=== PATIENT | female | born 1965 | race Caucasian/White ===

== ENCOUNTER 2020-04-14 09:53 | Inpatient (IN) | payer OTHER ==
[~2020-04-14] VITALS: Ht 177.8 cm; Wt 124.8 kg
[~2020-04-14 09:53] MED LIST: AMBIEN 5 MG TABL5 M1 PO; APAP500 PO; FLEXERIL PO; HYDROCODON-ACE1 EAC7 PO; IBUPROFEN 200200 M1 PO; LEVAQUIN 750 M750 MG PO; LIPITOR 20 MG T20 M1 PO; LISINOPRIL10 MG PO; LOPRESSOR100 M1 PO; METFORMIN HCL500 MG PO; OMEPRAZOLE20 M2 PO; TESSALON PERLE100 MG PO; VENTOLIN HFA 1818 GM INH; ZOFRAN4 MG PO; ZOLOFT100 MG PO
[2020-04-14 10:05] VITALS: BP 150/79
[2020-04-14] MEDS ORDERED: FLEXERIL PO (10:09)
[2020-04-14] MEDS ORDERED: AMBIEN 5 MG TABL5 MG PO (10:09)
[2020-04-14 10:31] LABS: ABSOLUTE BASOPHILS 0.1 thou/uL (0.0-0.2); ABSOLUTE EOSINOPHILS 0.1 thou/uL (0.0-0.7); ABSOLUTE LYMPHOCYTES 1.8 thou/uL (0.8-5.3); ABSOLUTE MONOCYTES 0.3 thou/uL (0.0-1.2); ABSOLUTE NEUTROPHILS 2.5 thou/uL (1.6-8.1); BASOPHILS 2.1 %; EOSINOPHILS 1.6 %; HEMATOCRIT 31.6 % (37.0-47.0); HEMOGLOBIN 10.1 gm/dL (12.0-15.0); LYMPHOCYTES 37.2 %; MCH 25.3 pg (26.0-34.0); MCHC 32.1 g/dL (28.0-37.0); MCV 78.8 fL (80.0-100.0); MONOCYTES 7.2 %; MPV 8.6 fl. (7.2-11.1); NUCLEATED RBCS 0 /100WBC; PLATELET COUNT* 124 thou/uL (150-400); POLYS 51.9 %; RBC 4.01 mil/uL (4.20-5.00); RDW-CV 19.1 % (10.5-14.5); WBC 4.8 thou/uL (4.0-11.0)
[2020-04-14 10:39] LABS: CALCIUM 8.4 mg/dL (8.5-10.1); CREATININE 0.7 mg/dL (0.6-1.3); POTASSIUM 3.9 mmol/L (3.5-5.1)
[2020-04-14 10:43] LABS: ALBUMIN 2.6 g/dL (3.4-5.0); TOTAL PROTEIN 6.6 g/dL (6.4-8.2)
[2020-04-14 12:14] LABS: APTT 27.3 Seconds (25.0-31.3); INR 1.2; PROTIME 12.6 Seconds (9.20-11.50)
[2020-04-14 12:47] LABS: CHOLESTEROL 125 mg/dL (<200); HDL CHOLESTEROL 42 mg/dL (>40); LDL CHOLESTEROL 66 mg/dL (<100); SERUM ASSESSMENT Clear; TRIGLYCERIDE 85 mg/dL (<150); VLDL 17 mg/dL (<40)
--- NOTE | 2020-04-14 14:47 | EKG ---
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 : 1965 Requested By: Danya Marcus Order Number: [id number] MD: Dejuan Strauss Measurements Intervals [place] Rate: 75 P: 3 DC: 146 QRS: 4 QRSD: 92 T: 40 QT: 404 QTc: 452 Interpretive Statements Sinus rhythm Low voltage, precordial leads LVH by voltage Borderline T abnormalities, anterior leads Compared to ECG 08/08/2016 15:22:00 Low QRS voltage now present Left ventricular hypertrophy now present T-wave abnormality now present Electronically Signed On 04-14-2020 14:46:50 CONSERVATION SCIENCE TEACHER by Dejuan Strauss [email or web address] <ELECTRONICALLY SIGNED> By: Dejuan Strauss MD, [facility] 04/14/20 1446 1045 1045 Dejuan Strauss MD, [facility] /EPI
[2020-04-14 14:51] LABS: URINE BILIRUBIN NEGATIVE (Negative); URINE BLOOD TRACE (Negative); URINE CLARITY CLEAR; URINE COLOR YELLOW; URINE GLUCOSE-RANDOM NEGATIVE (Negative); URINE KETONES NEGATIVE (Negative); URINE LEUKOCYTES-REFLEX NEGATIVE (Negative); URINE NITRITE-REFLEX NEGATIVE (Negative); URINE PROTEIN NEGATIVE (Negative); URINE UROBILINOGEN 0.2 E.U./dl (0.2-1.0)
[2020-04-14 15:02] LABS: AMP/METHAMP Negative (Negative); BARBITURATES Negative (Negative); BENZODIAZEPINES Negative (Negative); COCAINE Negative (Negative); METHADONE Negative (Negative); OPIATES Negative (Negative); PCP Negative (Negative); THC Negative (Negative)
[2020-04-14 17:00] VITALS: BP 146/77
[2020-04-14 20:40] VITALS: BP 139/77
[2020-04-14 20:45] VITALS: BP 143/58
[2020-04-15] VITALS (7 sets, daily range): BP systolic 118–167; BP diastolic 54–81
[2020-04-15 15:07] LABS: ANA INTERPRETATION Negative (Negative)
[2020-04-15 22:07] LABS: HEPATITIS B SURFACE AG Negative (Negative)
[2020-04-16 04:14] LABS: CALCIUM 8.2 mg/dL (8.5-10.1); CREATININE 0.7 mg/dL (0.6-1.3); HEMATOCRIT 28.7 % (37.0-47.0); HEMOGLOBIN 9.1 gm/dL (12.0-15.0); MCH 25.2 pg (26.0-34.0); MCHC 31.9 g/dL (28.0-37.0); MPV 9.1 fl. (7.2-11.1); RBC 3.63 mil/uL (4.20-5.00); RDW-CV 18.8 % (10.5-14.5); WBC 3.7 thou/uL (4.0-11.0)
[2020-04-16 04:29] VITALS: BP 105/69
[2020-04-16 08:00] VITALS: BP 112/64
[2020-04-16 14:01] VITALS: BP 112/64
[2020-04-16] MEDS ORDERED: PROTONIX40 M2 PO ×2 (14:11→14:24)
--- NOTE | 2020-04-17 09:08 | PATH ---
[address] [address] PATHOLOGY RPT PROCEDURE Name: DEDE SANTANA Room: [address] IN [facility]#: [id number] Admission: 04/14/20 Date of : 69 Discharge: 04/16/20 Report #: [id number] Path Case #: [id number] Note [facility] Accession Number: [id number] TESTS RESULT FLAG UNITS REF RANGE LAB Clinician Provided Cytology Information No. of containers..01 Other (Miscellaneous) Source: ASCITES DIAGNOSIS: 02 ASCITES NEGATIVE FOR MALIGNANT CELLS. REACTIVE MESOTHELIAL CELLS AND FEW, PREDOMINANTLY CHRONIC INFLAMMATORY CELLS. THIS INTERPRETATION INCLUDES EVALUATION OF A CELL BLOCK. Signed out by: 02 Cheikh Das MD, Pathologist NPI- [id number] Performed by: 01 Alicia Sotomayor, Gold Leaf Layer ([facility]) Gross description: 01 60ML, YELLOW, 1TP 1CB /LCS 04/15/2020 0630 Local FLAG LEGEND: L-Low Normal,H-High Normal,LL-Alert Low,HH-Alert High <-Panic Low,>-Panic High,A-Abnormal,AA-Critical Abnormal Performed at: [address] [place] [address] Jose Zarco MD, [address] [address] Cehikh Das MD, Specimen Comment: Report sent to DR PEREZ / DR BELTRE Performed at: [address], [place], [place] [id number] MD Jose Zarco MD Phone: [phone]
== END 2020-04-16 14:40 | disposition home or self-care (01) | DRG 442 ==
LOC: M.ERS 09:53 → M.TBA-ER 12:15 → M.2W 12:15
PROVIDERS: Family Medicine; Nurse Practitioner Family; ADMIT Internal Medicine; ATTEND Internal Medicine
PROC: 0W9G3ZZ Drainage of Peritoneal Cavity, Percutaneous Approach (ICD-10-PCS; principal; 2020-04-14)
PROC: 5A09357 Assistance with Respiratory Ventilation, Less than 24 Consecutive Hours, Continuous Positive Airway Pressure (ICD-10-PCS; 2020-04-15)
PROC: 0DB68ZX Excision of Stomach, Via Natural or Artificial Opening Endoscopic, Diagnostic (ICD-10-PCS; 2020-04-16)
DX: K75.81 Nonalcoholic steatohepatitis (NASH) (principal); R18.8 Other ascites; I85.10 Secondary esophageal varices without bleeding; K76.6 Portal hypertension; K74.69 Other cirrhosis of liver; K21.9 Gastro-esophageal reflux disease without esophagitis; E66.9 Obesity, unspecified; E78.5 Hyperlipidemia, unspecified; F17.210 Nicotine dependence, cigarettes, uncomplicated; G47.00 Insomnia, unspecified; F32.9 Major depressive disorder, single episode, unspecified; E88.09 Other disorders of plasma-protein metabolism, not elsewhere classified; E11.9 Type 2 diabetes mellitus without complications; E88.81 Metabolic syndrome and other insulin resistance; Z20.822 Contact with and (suspected) exposure to COVID-19; K44.9 Diaphragmatic hernia without obstruction or gangrene; K31.89 Other diseases of stomach and duodenum; Z90.49 Acquired absence of other specified parts of digestive tract; Z90.711 Acquired absence of uterus with remaining cervical stump; Z90.722 Acquired absence of ovaries, bilateral; Z68.39 Body mass index [BMI] 39.0-39.9, adult; Z83.6 Family history of other diseases of the respiratory system; Z80.9 Family history of malignant neoplasm, unspecified

== ENCOUNTER 2020-05-19 10:13 | Observation (INO) | payer OTHER ==
[~2020-05-19] VITALS: Ht 177.8 cm; Wt 123.4 kg
[~2020-05-19 10:13] MED LIST changes: +AMBIEN 5 MG TABL5 MG PO; +PROTONIX40 M2 PO
[2020-05-19 10:27] VITALS: BP 113/70
[2020-05-19 11:02] LABS: ABSOLUTE BASOPHILS 0.1 thou/uL (0.0-0.2); ABSOLUTE EOSINOPHILS 0.1 thou/uL (0.0-0.7); ABSOLUTE LYMPHOCYTES 1.9 thou/uL (0.8-5.3); ABSOLUTE MONOCYTES 0.4 thou/uL (0.0-1.2); ABSOLUTE NEUTROPHILS 3.3 thou/uL (1.6-8.1); BASOPHILS 2.4 %; HEMATOCRIT 32.1 % (37.0-47.0); HEMOGLOBIN 10.3 gm/dL (12.0-15.0); LYMPHOCYTES 32.6 %; MCH 25.4 pg (26.0-34.0); MCHC 32.1 g/dL (28.0-37.0); MCV 79.1 fL (80.0-100.0); MONOCYTES 6.7 %; MPV 9.8 fl. (7.2-11.1); NUCLEATED RBCS 0 /100WBC; PLATELET COUNT* 137 thou/uL (150-400); POLYS 57.3 %; RBC 4.06 mil/uL (4.20-5.00); RDW-CV 19.1 % (10.5-14.5); WBC 5.8 thou/uL (4.0-11.0)
[2020-05-19 11:12] LABS: CREATININE 0.8 mg/dL (0.6-1.3); POTASSIUM 4.2 mmol/L (3.5-5.1)
[2020-05-19 11:16] LABS: ALBUMIN 2.4 g/dL (3.4-5.0); TOTAL BILIRUBIN 1.1 mg/dL (<0.1-1.0)
[2020-05-19 12:34] LABS: APTT 27.3 Seconds (25.0-31.3); INR 1.2; PROTIME 12.4 Seconds (9.20-11.50)
[2020-05-19 13:46] LABS: URINE BILIRUBIN NEGATIVE (Negative); URINE BLOOD NEGATIVE (Negative); URINE CLARITY CLEAR; URINE COLOR YELLOW; URINE GLUCOSE-RANDOM NEGATIVE (Negative); URINE KETONES NEGATIVE (Negative); URINE LEUKOCYTES-REFLEX NEGATIVE (Negative); URINE NITRITE-REFLEX NEGATIVE (Negative); URINE PROTEIN NEGATIVE (Negative); URINE SPECIFIC GRAVITY <= 1.005 (1.005-1.030); URINE UROBILINOGEN 0.2 E.U./dl (0.2-1.0)
--- NOTE | 2020-05-19 14:28 | EKG ---
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 : 1965 Requested By: Max Ott Order Number: [id number] MD: Suleman White Measurements Intervals [place] Rate: 72 P: 0 LA: 148 QRS: 5 QRSD: 92 T: 6 QT: 410 QTc: 449 Interpretive Statements Sinus rhythm LVH by voltage Borderline T abnormalities, anterior leads Compared to ECG 04/14/2020 10:45:49 No significant changes Electronically Signed On 05-19-2020 14:27:54 BAG MACHINE SET UP OPERATOR by Suleman White [email or web address] <ELECTRONICALLY SIGNED> By: Suleman White MD, [facility] 05/19/20 1427 1103 1103 Suleman White MD, [facility] /EPI
[2020-05-19 15:59] LABS: BF LYMPHOCYTES 96 %; BF MONOCYTES 3 %; BF POLYS 1 %; BF TISSUE 20 /100 WBC
[2020-05-19 16:00] LABS: BF EOSINOPHILS 0 %; BF RBC 0 /mm3; BODY FLUID BANDS 0 %; CLARITY SLIGHTLY CLOUDY; SOURCE ABDOMINAL; TOTAL VOLUME 5660 ml
[2020-05-19 16:12] VITALS: BP 130/59
[2020-05-19] MEDS ORDERED: LASIX 40 MG TAB40 MG PO (16:35)
[2020-05-19] MEDS ORDERED: ALDACTONE100 MG PO (16:35)
[2020-05-19 18:01] VITALS: BP 130/59
[2020-05-20 14:07] LABS: BODY FLUID CREATININE 0.5 mg/dL (Not Estab.)
--- NOTE | 2020-05-21 14:07 | PATH ---
[address] [address] PATHOLOGY RPT PROCEDURE Name: DEDE SANTANA Room: [address] Monet Canales#: [id number] Admission: 05/19/20 Date of : 69 Discharge: 05/19/20 Report #: [id number] Path Case #: [id number] Note [facility] Accession Number: [id number] TESTS RESULT FLAG UNITS REF RANGE LAB Clinician Provided Cytology Information No. of containers..01 Other (Miscellaneous) Source: PERITONEAL ACITES DIAGNOSIS: 02 PERITONEAL ACITES NEGATIVE FOR MALIGNANT CELLS. MESOTHELIAL CELLS AND FEW, PREDOMINANTLY CHRONIC INFLAMMATORY CELLS. THIS INTERPRETATION INCLUDES EVALUATION OF A CELL BLOCK. Signed out by: 02 Cheikh Das MD, Pathologist NPI- [id number] Performed by: Karishma Palacios, Glove Examiner ([facility]) Gross description: 01 15ML, YELLOW, 1TP 1 CB /LCS 05/20/2020 0726 Local FLAG LEGEND: L-Low Normal,H-High Normal,LL-Alert Low,HH-Alert High <-Panic Low,>-Panic High,A-Abnormal,AA-Critical Abnormal Performed at: [address] [place] [address] Jose Zarco MD, [address] [place] [address] [address] [place] [address] Cheikh Das MD, Specimen Comment: Report sent to Performed at: [address], [place], [place] [id number] MD Jose Zarco MD Phone: [phone]
== END 2020-05-19 17:30 | disposition home or self-care (01) ==
LOC: M.ERS 10:13 → M.TBA-ER 12:39 → M.ORTHSURG 16:26
PROVIDERS: Emergency Medicine Emergency Medical Services; ADMIT Internal Medicine; ATTEND Internal Medicine
DX: R18.8 Other ascites (principal); K74.60 Unspecified cirrhosis of liver; E11.9 Type 2 diabetes mellitus without complications; K21.9 Gastro-esophageal reflux disease without esophagitis; D64.9 Anemia, unspecified; E66.9 Obesity, unspecified; Z68.39 Body mass index [BMI] 39.0-39.9, adult; Z20.822 Contact with and (suspected) exposure to COVID-19

== ENCOUNTER → 2021-02-25 | Outpatient (CLI) | payer OTHER ==
[~2021-02-25] MED LIST changes: +ALDACTONE100 MG PO; +LASIX 40 MG TAB40 MG PO
== END ==
LOC: M.ULTRA 14:34
PROVIDERS: ATTEND Nurse Practitioner Family
DX: E04.1 Nontoxic single thyroid nodule (principal); R59.0 Localized enlarged lymph nodes

== ENCOUNTER → 2021-04-24 | Outpatient (CLI) | payer OTHER ==
--- NOTE | 2021-04-28 17:07 | PATH ---
[address] [address] PATHOLOGY RPT PROCEDURE Name: DEDE SANTANA Room: [facility]#: [id number] Admission: 04/24/21 Date of : 69 Discharge: Report #: [id number] Path Case #: [id number] Note [facility] Accession Number: [id number] TESTS RESULT FLAG UNITS REF RANGE LAB Clinician Provided Cytology Information No. of containers..01 Other (Miscellaneous) Source: LEFT THYROID DIAGNOSIS: 02 LEFT THYROID NODULE (3.2 X 4.0 X 2.1 CM), IMAGE-GUIDED FINE NEEDLE ASPIRATION: BETHESDA CATEGORY II BENIGN. CONSISTENT WITH A BENIGN FOLLICULAR NODULE. (FADI:socorro; 04/28/2021) Signed out by: 02 Cheikh Das MD, Pathologist NPI- [id number] Performed by: 01 Neisha Vann, Instantizer Operator ([facility]) FLAG LEGEND: L-Low Normal,H-High Normal,LL-Alert Low,HH-Alert High <-Panic Low,>-Panic High,A-Abnormal,AA-Critical Abnormal Performed at: [address] [place] [address] Jose Zarco MD, [address] [address] Cheikh Das MD, Performed at: [address], [place], [place] [id number] MD Jose Zarco MD Phone: [phone]
== END | disposition home or self-care (01) ==
LOC: M.ULTRA 03-18 08:30
PROVIDERS: ATTEND Nurse Practitioner Family
DX: E04.1 Nontoxic single thyroid nodule (principal); K21.9 Gastro-esophageal reflux disease without esophagitis; Z79.899 Other long term (current) drug therapy